=== PATIENT | male | born 1995 | race Caucasian/White ===

== ENCOUNTER 2021-10-16 18:38 | Inpatient (IN) ==
--- NOTE | 2021-10-16 19:04 | XRay Report ---
XR chest 1V portable HISTORY: 26 years-old Male SOB acute shortness of breath COMPARISON: Chest radiograph 10/13/2021 TECHNIQUE: Portable AP view of the chest FINDINGS: Cardiomediastinal and hilar silhouettes are unchanged. Progressively worsened bilateral ill-defined a irspace opacities within a mid to lower lung zone predominant distribution. Mild associated interstit ial coarsening. No pneumothorax or large pleural effusion. No acute fracture. IMPRESSION: Progressively worsened bilateral airspace opacities compatible with multifocal pneumonia. ACT 112: Negative or not required by law. The above report was generated using voice recognition software. It may contain grammatical, syntax o r spelling errors. Electronically signed by: Porfirio Branch M.D. 10/16/2021 7:02 PM
[2021-10-16 19:59] LABS: Basophils # (auto) 0.02 K/uL (0-0.2); Basophils % (auto) 0.2 %; Hematocrit (blood only) 43.1 % (42-52); Hemoglobin 15.5 g/dL (14.0-18.0); Immature Granulocytes # (auto) 0.03 K/uL (0.00-0.02); Immature Granulocytes % (auto) 0.3 %; Lymphocytes # (auto) 0.45 K/uL (1.2-3.4); Lymphocytes % (auto) 4.7 %; Mean Corpuscular Hemoglobin 31.6 pg (25-34); Mean Corpuscular Volume 87.8 fL (80-100); Mean Platelet Volume 9.1 fL (7.4-10.4); Monocytes % (auto) 7.3 %; Neutrophils # (auto) 8.38 K/uL (1.4-6.5); Neutrophils % (auto) 87.5 %; Platelet Count 243 K/uL (130-400); RDW Coefficient of Variation 11.9 % (11.5-14.5); Red Blood Count 4.91 M/uL (4.7-6.1); White Blood Count 9.58 K/uL (4.8-10.8)
[2021-10-16 20:14] LABS: Partial Thromboplastin Ratio 0.9; Partial Thromboplastin Time 24.7 Seconds (21.0-31.0); Prothrombin Time 10.2 Seconds (9.0-12.0)
[2021-10-16 20:19] LABS: Alanine Aminotransferase 55 (12-78); Albumin Level 3.4 gm/dl (3.4-5.0); Aspartate Aminotransferase 35 U/L (15-37); BUN Creatinine Ratio 18.8 (10-20); Blood Urea Nitrogen 20 mg/dl (7-18); Calcium 9.1 mg/dl (8.5-10.1); Carbon Dioxide 26 mmol/L (21-32); Chloride 101 mmol/L (98-107); Est GFR (African American) 112.7 ml/min; Est GFR (Non-African American) 97.3 ml/min; Glucose 136 mg/dl (70-99); Magnesium 2.5 mg/dl (1.8-2.4); Potassium 4.3 mmol/L (3.5-5.1); Sodium 134 mmol/L (136-145)
[2021-10-16 20:24] LABS: Albumin Globulin Ratio 0.8 (0.9-2); Alkaline Phosphatase 56 U/L (45-117); Bilirubin,Total 0.8 mg/dl (0.2-1); Globulin 4.1 gm/dl (2.5-4.0); Total Protein 7.5 gm/dl (6.4-8.2); Troponin I < 0.015 ng/ml (0-0.045)
--- NOTE | 2021-10-16 21:37 | Emergency Department Note ---
Impression & Plan Acute hypoxemic respiratory failure due to COVID-19, Pneumonia due to 2019 novel coronavirus, Hyponatremia, Cough ED Provider Note NAME: GRICEL DIXON AGE: 26 SEX: M : 1995 ARRIVES VIA: Ambulance INFORMANT: Patient, ED PROVIDER(S): Yung Atkins MD � Chief Complaint: Shortness of breath, cough HPI: Patient does present with the above complaints. The patient is unvaccinated for COVID-19 and is on day 11 of symptoms. The patient was recently seen here and subsequently discharged. The patient has been taking Tessalon Perle, albuterol and dexamethasone. The patient has had mild improvement in symptoms. The patient denies any recent fever. Patient has any prior history of DVT or PE. Patient is not a smoker. Patient denies any recent surgeries or procedures. Patient is concerned as his oxygen at home was 84% on room air just from laying down to sitting up. Patient denies any vomiting or di arrhea. No loss of taste or smell. Patient denies any known sick contacts. Patient believes his symptoms have gotten progressively worse or not getting better. The medications make him feel somewhat better but only for a brief time. ROS: See HPI for pertinent positives and negatives. A total of 10 systems were reviewed and otherwise negative. Past medical history: See below Surgical history: See below Social history: See below Physical Exam: GENERAL: Fatigued in appearance, sitting upright in a wheelchair with nasal cannula in place. Wearing a mask. EYE EXAM: Normal conjunctiva. PERRL, no anisocoria and EOM's grossly intact w/o pain. NECK: Supple, no nuchal rigidity, no adenopathy, non-tender. No signs of meningismus. LUNGS: Crackles present. Normal chest wall mechanics. HEART: NSR, no MRG. ABDOMEN: Abdomen soft, non-tender, normo-active bowel sounds, no masses, no rebound or guarding. BACK: No CVA TTP. SKIN: No rashes and no bruising. UPPER EXTREMITIES: Upper extremities are grossly normal. LOWER EXTREMITIES: Grossly normal, no edema. Negative Homans' sign bilaterally. NEURO EXAM: A&O x3, cranial nerves II-XII grossly intact, normal speech, moves all 4 extremities on command w/o issue. Differential diagnoses: Reactive airway disease, pneumonia, pneumothorax, COPD, CHF, infections, cardiac ischemia, pulmonary embolism, musculoskeletal, gastrointestinal, as well as other pathologies. Course: Patient was seen and evaluated the bedside. Full history physical exam was performed. EKG interpreted by me Normal sinus rhythm, rate of 61, normal intervals, normal axis, T wave inversion in lead III not in contiguous leads. No obvious ST elevations. Imaging Studies: See Below Cardiac monitoring: An order was placed for continuous cardiac monitoring. The monitor shows a rate of 68 with sinus rhythm. MDM: Patient did present due to concern for Covid illness. Blood work is obtained along with an EKG and chest x-ray. Chest ray does show worsening Covid p neumonia. . Patient also reported that he blood work shows normal white count H&H and platelet count. The patient's kidney function is unremarkable. The patient does have mildly elevated magnesium and low sodium. Troponin is nondetectable. I did have the patient undergo an ambulatory trial without oxygen as the patient was on 1 L as this made him feel more comfortable. The patient dropped to 90%. Patient was concerned about his at home hypoxia of 84%. I did speak the on-call hospitalist and the patient was admitted by Dr. Ray. Critical Care: I have personally spent 42 minutes of critical care time in direct management of this patient. This includes bedside care, interpretation of diagnostic studies, and testing, discussion with consultants, patient, and family members, and other require inpatient management activities. This 42 minutes is in excess of all separately billable procedures. Past Med/Surg History Medical History COVID-19 Surgical History Hx of knee surgery No pertinent past surgical history Social History Smoking Status: Never smoker Feels Safe at Home: Yes Allergies Allergies Allergy/AdvReac Type Severity Reaction Status Date / Time No Known Allergies Allergy Unverified 10/13/21 10:17 Home Meds Home Medications Medication Instructions Recorded Confirmed acetaminophen 500 mg tablet 500 mg PO Q6H PRN 10/13/21 10/13/21 azithromycin 500 mg tablet 500 mg PO QAM 10/13/21 10/13/21 ibuprofen 200 mg tablet 200 mg PO Q6H PRN 10/13/21 10/13/21 Previous Rx's Medication Instructions Recorded albuterol sulfate 90 mcg/actuation 3 inh INHALATION Q6H #18 g 10/13/21 aerosol inhaler benzonatate 200 mg capsule 200 mg PO TID PRN #30 cap 10/13/21 dexamethasone 6 mg tablet 6 mg PO DAILY #6 tab 10/13/21 (Decadron) Results & Data (ED) Vital Signs Vital Signs - 24 hr 10/16/21 18:42 10/16/21 19:46 10/16/21 21:57 Temperature 36.6 C Temperature Source Temporal Artery Scan Pulse Rate 79 Pulse Rate [Finger] 73 Respiratory Rate 16 20 Respiratory Effort / Characteristics Respiratory Depth Blood Pressure 129/81 Blood Pressure [Left Arm] 129/79 Blood Pressure Mean 97 Blood Pressure Mean [Left Arm] 95 Blood Pressure Position [Left Arm] Pulse Oximetry 92 95 Pulse Oximetry [Exercises] 90 Pulse Oximetry [Recovery] 91 Pulse Oximetry [Resting] 93 Oxygen Delivery Method Room Air Nasal Cannula Room Air Oxygen Flow Rate 1 Sepsis Recent Fever Within 48 Hours No Sepsis New/Unexplained Change in Mental Status No Sepsis Action Taken by Nursing No Action Required 10/16/21 22:17 10/16/21 22:19 10/16/21 22:21 Temperature Temperature Source Pulse Rate Pulse Rate [Finger] 64 Respiratory Rate 22 Respiratory Effort / Characteristics Non-Labored Spontaneous Non-Labored Spontaneous Non-Labored Spontaneous Respiratory Depth Normal Normal Blood Pressure Blood Pressure [Left Arm] 119/72 Blood Pressure Mean Blood Pressure Mean [Left Arm] 87 Blood Pressure Position [Left Arm] Sitting Pulse Oximetry 95 95 Pulse Oximetry [Exercises] Pulse Oximetry [Recovery] Pulse Oximetry [Resting] Oxygen Delivery Method Nasal Cannula Nasal Cannula Oxygen Flow Rate 1 1 Sepsis Recent Fever Within 48 Hours Sepsis New/Unexplained Change in Mental Status Sepsis Action Taken by Nursing Laboratory Data Result diagrams: 10/16/21 19:50 10/16/21 19:50 Lab Results 10/16/21 10/16/21 10/16/21 Range/Units 19:50 19:50 19:50 WBC 9.58 (4.8-10.8) K/uL RBC 4.91 (4.7-6.1) M/uL Hgb 15.5 (14.0-18.0) g/dL Hct 43.1 (42-52) % MCV 87.8 (80-100) fL MCH 31.6 (25-34) pg MCHC 36.0 (32-36) g/dL RDW Std Deviation 38.0 (36.4-46.3) fL RDW Coeff of [place] 11.9 (11.5-14.5) % Plt Count 243 (130-400) K/uL MPV 9.1 (7.4-10.4) fL Immature Gran % (Auto) 0.3 % Neut % (Auto) 87.5 % Lymph % (Auto) 4.7 % [place] % (Auto) 7.3 % Eos % (Auto) 0.0 % Baso % (Auto) 0.2 % Neut # (Auto) 8.38 H (1.4-6.5) K/uL Lymph # (Auto) 0.45 L (1.2-3.4) K/uL [place] # (Auto) 0.70 H (0.11-0.59) K/uL Eos # (Auto) 0.00 (0-0.5) K/uL Baso # (Auto) 0.02 (0-0.2) K/uL Immature Gran # (Auto) 0.03 H (0.00-0.02) K/uL PT 10.2 (9.0-12.0) Seconds INR 1.0 (0.9-1.1) APTT 24.7 (21.0-31.0) Seconds PTT Ratio 0.9 Sodium 134 L (136-145) mmol/L Potassium 4.3 (3.5-5.1) mmol/L Chloride 101 (98-107) mmol/L Carbon Dioxide 26 (21-32) mmol/L Anion Gap 7.0 (3-11) BUN 20 H (7-18) mg/dl Creatinine 1.04 (0.6-1.4) mg/dl Est Cr Clr Drug Dosing Not Reportable Est GFR ( Amer) 112.7 ml/min Est GFR (Non-Af Amer) 97.3 ml/min BUN/Creatinine Ratio 18.8 (10-20) Glucose 136 H (70-99) mg/dl Calcium 9.1 (8.5-10.1) mg/dl Magnesium 2.5 H (1.8-2.4) mg/dl Total Bilirubin 0.8 (0.2-1) mg/dl AST 35 (15-37) U/L ALT 55 (12-78) Alkaline Phosphatase 56 (45-117) U/L Troponin I < 0.015 (0-0.045) ng/ml Total Protein 7.5 (6.4-8.2) gm/dl Albumin 3.4 (3.4-5.0) gm/dl Globulin 4.1 H (2.5-4.0) gm/dl Albumin/Globulin Ratio 0.8 L (0.9-2) Administered Medications Discontinued Medications Sodium Chloride (Nss 1000ml) 1,000 mls @ 999 mls/hr IV .Q1H1M ONE Stop: 10/16/21 22:45 Last Infusion: 10/16/21 22:42 Dose: 0 mls/hr Documented by: [id number] Admin: 10/16/21 22:07 Dose: 999 mls/hr Documented by: [id number] Ketorolac Tromethamine (Ketorolac Tromethamine 15 Mg/Ml Vial) 10 mg IV NOW ONE Stop: 10/16/21 21:46 Last Admin: 10/16/21 22:07 Dose: 10 mg Documented by: [id number] Imaging Data Radiologist's Impression: Chest X-Ray 10/16/21 18:44 XR chest 1V portable HISTORY: 26 years-old Male SOB acute shortness of breath COMPARISON: Chest radiograph 10/13/2021 TECHNIQUE: Portable AP view of the chest FINDINGS: Cardiomediastinal and hilar silhouettes are unchanged. Progressively worsened bilateral ill-defined airspace opacities within a mid to lower lung zone predominant distribution. Mild associated interstitial coarsening. No pneumothor ax or large pleural effusion. No acute fracture. IMPRESSION: Progressively worsened bilateral airspace opacities compatible with multifocal pneumonia. ACT 112: Negative or not required by law. The above report was generated using voice recognition software. It may contain grammatical, syntax or spelling errors. Electronically signed by: Porfirio Branch M.D. 10/16/2021 7:02 PM Discharge Plan Visit Data Chief Complaint: Shortness of Breath/Dyspnea ED Provider: Yung Atkins Discharge Problem: Acute hypoxemic respiratory failure due to COVID-19, Pneumonia due to 2019 novel coronavirus, Hyponatremia, Cough Patient Disposition: Admitted As Inpatient Prescriptions Prescriptions: No Action acetaminophen [Tylenol Ex Str Rapid Release] 500 mg Tablet 500 mg PO Q6H PRN (Reason: Pain) RF: 0 ibuprofen 200 mg Tablet 200 mg PO Q6H PRN (Reason: Pain) RF: 0 azithromycin 500 mg tablet 500 mg PO QAM RF: 0 albuterol sulfate 90 mcg/actuation HFA aerosol inhaler 3 inh inhalation Q6H Qty: 18 RF: 2 dexamethasone [Decadron] 6 mg tablet 6 mg PO DAILY Qty: 6 RF: 0 benzonatate 200 mg capsule 200 mg PO TID PRN (Reason: cough) Qty: 30 RF: 1 Referrals Referrals: Juan Avila [Primary Care Provider] -
[2021-10-16] MEDS ORDERED: SODIUM CHLORIDE 0.9% 1000ML 1,000 ML IV ONE (21:45)
[2021-10-16] MEDS ORDERED: KETOROLAC TROMETHAMINE 15 MG/ML VIAL IV ONE (21:45)
[2021-10-17] MEDS ORDERED: REMDESIVIR 200 MG in SODIUM CHLORIDE 0.9% 210 ML IV STA (00:09)
--- NOTE | 2021-10-17 00:10 | History & Physical Report ---
Date of Service October 17, 2021 Assessment & Plan (1) Acute hypoxemic respiratory failure due to COVID-19: Plan: Acute respiratory failure with hypoxia due to COVID-19 with secondary bacterial pneumonias- Failure of outpatient treatment Pulse ox noted to be 90% on room air with short walk Dexamethasone 6 mg IV every morning Remdesivir IV per protocol Duonebs every 4 hours while awake and every 2 hours when necessary. Ceftriaxone 1 g IV daily Azithromycin 500 mg IV daily Tessalon Perles 100 milligrams p.o. 3 times daily Guaifenesin extended release 12 mg p.o. twice daily Nasal cannula oxygen, titrate to keep pulse ox 95% (2) Secondary bacterial pneumonia: Plan: See above (3) Failure of outpatient treatment: Plan: See above History of Present Illness Chief Complaint: The patient presents to the emergency department with initial symptoms of short ness of breath and fever that began 10 days ago, was diagnosed with COVID-19 infection on 10/10, was seen at the ED here on 10/13/2021, placed on dexamethasone orally, azithromycin orally and albuterol HFA every 6 hours, and has continued to worsen causing him to represented to the ED this evening. Primary Care Provider: Juan Avila The patient is a 26-year-old male with no significant past medical history, who presents with symptoms as noted above. Chest x-ray in the ED this evening shows a worsening multifocal pneumonia, in particular at the bases bilaterally. His symptoms of initial improvement with subsequent worsening, and failure of outpatient treatment, are suggestive of initial COVID-19 pneumonia with superimposed secondary bacterial pneumonia with hypoxia. Pulse ox on room air noted to be 90% with exercise, although he notes 84% on room air at home. Allergies Allergy/AdvReac Type Severity Reaction Status Date / Time No Known Allergies Allergy Verified 10/17/21 00:11 Home Medications Medication Instructions Recorded Confirmed Type acetaminophen 500 mg tablet 500 mg PO Q6H PRN 10/13/21 10/13/21 History albuterol sulfate 90 mcg/actuation 3 inh INHALATION Q6H #18 g 10/13/21 Rx aerosol inhaler benzonatate 200 mg capsule 200 mg PO TID PRN #30 cap 10/13/21 Rx dexamethasone 6 mg tablet 6 mg PO DAILY #6 tab 10/13/21 Rx (Decadron) ibuprofen 200 mg tablet 200 mg PO Q6H PRN 10/13/21 10/13/21 History Past Med/Surg History Medical History COVID-19 Surgical History Hx of knee surgery No pertinent past surgical history Social History Smoking Status: Never smoker Feels Safe at Home: Yes Review of Systems Review of Systems: The patient denies chest pain, palpitations, lower extremity swelling, sore throat, fevers, chills, sweats, nausea, vomiting, diarrhea , constipation, abdominal pain, pelvic pain, blood in urine or stool, dysuria, urinary frequency or urgency, lightheadedness, dizziness, headache, memory loss, loss of consciousness, rash, abnormal bruising or bleeding, imbalance, focal weakness, numbness or tingling in arms or legs, back or neck pain, or night sweats. The review of systems is otherwise negative other than for that already noted above, and at least 10 systems have been reviewed. Physical Exam Physical Exam: The patient is awake, alert and oriented �3, well developed and well nourished, normocephalic and atraumatic, lying in bed and in no acute distress at rest except during paroxysmal coughing. HEENT--PERRL, EOMI, mucous membranes and oropharynx dry. Neck--supple. No JVD. No bruits. Thyroid normal, trachea midline, no adenopathy. Heart--normal S1 and S2. No murmurs, rubs or gallops. Lungs--coarse breath sounds primarily at the bases bilaterally. No respiratory distress, no accessory muscle use, except during paroxysmal coughing Abdomen--normal bowel sounds and soft. Nontender. Nondistended, no hernias or masses, no organomegaly. Extremities--no cyanosis or clubbing. No edema. Dermatologic--normal skin turgor, normal color, no abnormal lymph nodes, no rash . Neurologic--cranial nerves II through XII grossly intact. Rheumatologic--normal range of motion. Psychiatric--normal affect. Results & Data Results & Data ([facility]) Vital Signs (Past 12 Hours) Vital Signs Temp Pulse Pulse Resp BP BP Pulse Ox 10/17/21 00:02 94 10/17/21 00:00 63 93 H 126/77 93 10/16/21 22:21 95 10/16/21 22:17 64 22 119/72 95 10/16/21 21:57 10/16/21 19:46 73 20 129/79 95 10/16/21 18:42 36.6 C 79 16 129/81 92 Pulse Ox Pulse Ox Pulse Ox 10/17/21 00:02 10/17/21 00:00 10/16/21 22:21 10/16/21 22:17 10/16/21 21:57 90 91 93 10/16/21 19:46 10/16/21 18:42 Laboratory Results Laboratory Results WBC 9.58 K/uL (4.8-10.8) 10/16/21 19:50 RBC 4.91 M/uL (4.7-6.1) 10/16/21 19:50 Hgb 15.5 g/dL (14.0-18.0) 10/16/21 19:50 Hct 43.1 % (42-52) 10/16/21 19:50 MCV 87.8 fL (80-100) 10/16/21 19:50 MCH 31.6 pg (25-34) 10/16/21 19:50 MCHC 36.0 g/dL (32-36) 10/16/21 19:50 RDW Std Deviation 38.0 fL (36.4-46.3) 10/16/21 19:50 RDW Coeff of [place] 11.9 % (11.5-14.5) 10/16/21 19:50 Plt Count 243 K/uL (130-400) 10/16/21 19:50 MPV 9.1 fL (7.4-10.4) 10/16/21 19:50 Immature Gran % (Auto) 0.3 % 10/16/21 19:50 Neut % (Auto) 87.5 % 10/16/21 19:50 Lymph % (Auto) 4.7 % 10/16/21 19:50 [place] % (Auto) 7.3 % 10/16/21 19:50 Eos % (Auto) 0.0 % 10/16/21 19:50 Baso % (Auto) 0.2 % 10/16/21 19:50 Neut # (Auto) 8.38 K/uL (1.4-6.5) H 10/16/21 19:50 Lymph # (Auto) 0.45 K/uL (1.2-3.4) L 10/16/21 19:50 [place] # (Auto) 0.70 K/uL (0.11-0.59) H 10/16/21 19:50 Eos # (Auto) 0.00 K/uL (0-0.5) 10/16/21 19:50 Baso # (Auto) 0.02 K/uL (0-0.2) 10/16/21 19:50 Immature Gran # (Auto) 0.03 K/uL (0.00-0.02) H 10/16/21 19:50 PT 10.2 Seconds (9.0-12.0) 10/16/21 19:50 INR 1.0 (0.9-1.1) 10/16/21 19:50 APTT 24.7 Seconds (21.0-31.0) 10/16/21 19:50 PTT Ratio 0.9 10/16/21 19:50 Sodium 134 mmol/L (136-145) L 10/16/21 19:50 Potassium 4.3 mmol/L (3.5-5.1) 10/16/21 19:50 Chloride 101 mmol/L (98-107) 10/16/21 19:50 Carbon Dioxide 26 mmol/L (21-32) 10/16/21 19:50 Anion Gap 7.0 (3-11) 10/16/21 19:50 BUN 20 mg/dl (7-18) H 10/16/21 19:50 Creatinine 1.04 mg/dl (0.6-1.4) 10/16/21 19:50 Est Cr Clr Drug Dosing Not Reportable 10/16/21 19:50 Est GFR ( Amer) 112.7 ml/min 10/16/21 19:50 Est GFR (Non-Af Amer) 97.3 ml/min 10/16/21 19:50 BUN/Creatinine Ratio 18.8 (10-20) 10/16/21 19:50 Glucose 136 mg/dl (70-99) H 10/16/21 19:50 Calcium 9.1 mg/dl (8.5-10.1) 10/16/21 19:50 Magnesium 2.5 mg/dl (1.8-2.4) H 10/16/21 19:50 Total Bilirubin 0.8 mg/dl (0.2-1) 10/16/21 19:50 AST 35 U/L (15-37) 10/16/21 19:50 ALT 55 (12-78) 10/16/21 19:50 Alkaline Phosphatase 56 U/L (45-117) 10/16/21 19:50 Troponin I < 0.015 ng/ml (0-0.045) 10/16/21 19:50 Total Protein 7.5 gm/dl (6.4-8.2) 10/16/21 19:50 Albumin 3.4 gm/dl (3.4-5.0) 10/16/21 19:50 Globulin 4.1 gm/dl (2.5-4.0) H 10/16/21 19:50 Albumin/Globulin Ratio 0.8 (0.9-2) L 10/16/21 19:50 Impressions Chest X-Ray 10/16/21 18:44 XR chest 1V portable HISTORY: 26 years-old Male SOB acute shortness of breath COMPARISON: Chest radiograph 10/13/2021 TECHNIQUE: Portable AP view of the chest FINDINGS: Cardiomediastinal and hilar silhouettes are unchanged. Progressively worsened bilateral ill-defined airspace opacities within a mid to lower lung zone predominant distribution. Mild associated interstitial coarsening. No pneumothorax or large pleural effusion. No acute fracture. IMPRESSION: Progressively worsened bilateral airspace opacities compatible with multifocal pneumonia. ACT 112: Negative or not required by law. The above report was generated using voice recognition software. It may contain grammatical, syntax or spelling errors. Electronically signed by: Porfirio Branch M.D. 10/16/2021 7:02 PM Code Status & VTE Plan Code Status Full code VTE Prophylaxis Plan VTE Prophylaxis will be ordered: Yes PG Care Time/CCT Total # of Minutes Spent Total Time Spent with Patient: Total time spent is greater than 50% in coordination of care (as documented) at patient's floor/unit and/or counseling patient: Coding Level of Care Code 10083 Initial Inpt Care Lvl 3 Diagnoses Acute hypoxemic respiratory failure due to COVID-19 U07.1; J96.01 Secondary bacterial pneumonia J15.9 Failure of outpatient treatment Z78.9
[2021-10-17] MEDS ORDERED: ACETAMINOPHEN 325 MG TAB PO PRN (02:53)
[2021-10-17] MEDS ORDERED: ONDANSETRON INJ 2 MG/ML 2 ML VIAL IV PRN (02:53)
[2021-10-17] MEDS ORDERED: cefTRIAXone SODIUM 1,000 MG in DEXTROSE 5% 50 ML IV SCH (02:53)
[2021-10-17] MEDS: SODIUM CHLORIDE 0.9% 10ML FLUSH IV SCH ×3 (03:00→20:18)
[2021-10-17] MEDS ORDERED: PATIENT'S HEIGHT AND/OR WEIGHT NEEDED SCH (03:15)
[2021-10-17] MEDS: cefTRIAXone SODIUM 2,000 MG in DEXTROSE 5% 50 ML IV SCH (04:57)
[2021-10-17] MEDS ORDERED: ALBUT/IPRATROP 3MG/0.5MG NEB 3 ML VIAL NEB SCH (07:00)
[2021-10-17] MEDS: BENZONATATE 100 MG CAPSULE PO SCH ×3 (08:46→20:18)
[2021-10-17] MEDS: guaiFENesin 600 MG TABCR PO SCH ×2 (08:46→20:18)
[2021-10-17] MEDS: AZITHROMYCIN 500 MG in DEXTROSE 5% 250 ML IV SCH (09:47)
[2021-10-17] MEDS: ENOXAPARIN INJ 40 MG/0.4 ML SYR SQ SCH (09:47)
[2021-10-17] MEDS: dexAMETHasone 6 MG in SYRINGE 0 ML IV SCH (09:47)
--- NOTE | 2021-10-17 10:26 | Electrocardiogram Report ---
Test Reason : Blood Pressure : / mmHG Vent. Rate : 061 BPM Atrial Rate : 061 BPM P-R Int : 120 ms QRS Dur : 096 ms QT Int : 414 ms P-R-T Axes : 036 050 019 degrees QTc Int : 416 ms Poor data quality, interpretation may be adversely affected Normal sinus rhythm Normal ECG No previous ECGs available Confirmed by Sergio Jolly ([id number]) on 10/17/2021 10:26:47 AM Referred By: REFERRED SELF Confirmed By:Sergio Jolly
[2021-10-17] MEDS ORDERED: ALBUT/IPRATROP 3MG/0.5MG NEB 3 ML VIAL NEB PRN (10:32)
--- NOTE | 2021-10-17 13:57 | History & Physical Bridge Note ---
Date of Service October 17, 2021 History & Physical Bridge Note I have examined the patient, reviewed the History & Physical and in the interval since the performance of the History & Physical I have noted the following changes of clinical significance: patient feels a little more short of breath, he is on 4L mask at the moment, just walked back from bathroom gets coughing spells that make him desaturate, will give Codeine q6 PRN discussed eating and drinking well he will lay prone to help saturations discussed he can be discharged once on room air
[2021-10-18] MEDS: cefTRIAXone SODIUM 2,000 MG in DEXTROSE 5% 50 ML IV SCH (04:48)
[2021-10-18] MEDS: AZITHROMYCIN 500 MG in DEXTROSE 5% 250 ML IV SCH (09:54)
[2021-10-18] MEDS: dexAMETHasone 6 MG in SYRINGE 0 ML IV SCH (09:55)
[2021-10-18] MEDS: ENOXAPARIN INJ 40 MG/0.4 ML SYR SQ SCH (09:55)
[2021-10-18] MEDS: guaiFENesin 600 MG TABCR PO SCH ×2 (09:56→21:15)
[2021-10-18] MEDS: BENZONATATE 100 MG CAPSULE PO SCH ×3 (09:56→21:16)
--- NOTE | 2021-10-18 13:59 | Hospitalist Progress Note ---
Date of Service October 18, 2021 Assessment & Plan (1) Acute hypoxemic respiratory failure due to COVID-19: Plan: Acute respiratory failure with hypoxia due to COVID-19 with secondary bacterial pneumonias stable on 4L today, laying prone as much as possible he desaturates and gets short of breath on exertion flutter valve QID, incentive spirometer dexamethasone 6mg IV daily, day 2 Remdesivir, day 2 continue Ceftriaxone/Zithromax for 5 days, day 2 Duoneb PRN (2) Pneumonia due to 2019 novel coronavirus: Plan: treatment with dexamethasone and Remdesivir no role for baricitinib, only on 4L (3) Secondary bacterial pneumonia: Plan: complete 5 days of Rocephin/Zithromax (4) Failure of outpatient treatment: Plan: See above (5) Cough: Admission and Anticipated Discharge Date Admission Date: October 17, 2021 Subjective patient feels about the same as yesterday, still with a harsh cough feels fine when he is laying prone, gets short of breath when walking to the bathroom or when sitting up to eat no fever + cough, has a difficult time bringing up any sputum, got him a flutter valve encouraged him to keep doing what he is doing Review of Systems Review of Systems: All systems reviewed & are unremarkable except as noted in Subjective Respiratory: + cough, + dyspnea and + dyspnea on exertion Physical Exam Physical Exam: General: well developed, well nourished, no acute distress, comfortable Neck: supple, trachea midline, normal thyroid Lungs: clear to auscultation bilaterally, + tachypnea, slight accessory muscle use, + cough Heart: regular S1 and S2, no murmur, peripheral pulses normal, capillary refill normal, no edema Abdomen: soft, NT, ND, + BS, no hepatomegaly, normal to percussion Extremities: normal in appearance, no cyanosis, no petechiae, strength is 5/5 bilaterally Neuro: awake, cooperative, moves all extremities, no focal motor deficits, CN II-XII intact, sensation in extremities intact, normal speech Skin: warm, dry, no rash, normal turgor Psych: Awake, alert oriented x 3, euthymic affect Results & Data Results & Data ([facility]) Vital Signs (Past 12 Hours) Vital Signs Temp Pulse Pulse Resp BP Pulse Ox 10/18/21 05:39 54 L 97 10/18/21 04:49 37.2 C 65 115/91 94 10/18/21 04:00 44 L 23 98 Medications Administered Current Inpatient Medications Acetaminophen (Acetaminophen 325 Mg Tab) 650 mg PO Q4H PRN PRN Reason: Pain or Fever Stop: 11/16/21 02:52 Last Admin: 10/17/21 15:14 Dose: 650 mg Documented by: Albuterol (Albut/Ipratrop 3mg/0.5mg Neb 3 Ml Vial) 3 ml NEB Q4R PRN PRN Reason: Shortness Of Breath Or Wheezing Stop: 11/16/21 10:31 Benzonatate (Benzonatate 100 Mg Capsule) 100 mg PO TID [facility] Stop: 11/16/21 08:59 Last Admin: 10/18/21 09:56 Dose: 100 mg Documented by: Enoxaparin Sodium (Enoxaparin Inj 40 Mg/0.4 Ml Syr) 40 mg SQ Q24H [facility] Stop: 11/16/21 08:59 Last Admin: 10/18/21 09:55 Dose: 40 mg Documented by: Guaifenesin (Guaifenesin 600 Mg Tabcr) 1,200 mg PO Q12 [facility] Stop: 11/16/21 08:59 Last Admin: 10/18/21 09:56 Dose: 1,200 mg Documented by: Guaifenesin/Codeine Phosphate (Guaifenesin/Codeine 200mg/20mg 10ml Udc) 10 ml PO Q6H PRN PRN Reason: Cough Stop: 11/16/21 13:54 Last Admin: 10/17/21 15:14 Dose: 10 ml Documented by: Dexamethasone 6 mg/ Syringe 1.5 mls @ 1 mls/min IV Q24H [facility] Stop: 11/16/21 08:59 Last Admin: 10/18/21 09:55 Dose: 1 mls/min Documented by: Azithromycin 500 mg/ Dextrose 255 mls @ 125 mls/hr IV Q24H [facility] Stop: 10/24/21 08:59 Last Infusion: 10/18/21 12:11 Dose: Infused Documented by: Remdesivir 100 mg/ Sodium (Chloride) 250 mls @ 250 mls/hr IV Q24H [facility]; Protocol Stop: 10/21/21 20:59 Ceftriaxone Sodium 2,000 mg/ (Dextrose) 70 mls @ 140 mls/hr IV Q24H [facility] Stop: 10/24/21 03:59 Last Infusion: 10/18/21 05:19 Dose: Infused Documented by: Ondansetron HCl (Ondansetron Inj 2 Mg/Ml 2 Ml Vial) 4 mg IV Q6H PRN PRN Reason: Nausea Stop: 11/16/21 02:52 Sodium Chloride (Sodium Chloride 0.9% 10ml Flush) 30 ml IV Q24H [facility] Stop: 10/20/21 21:01 Last Admin: 10/17/21 20:18 Dose: 30 ml Documented by: PG Care Time/CCT Total # of Minutes Spent Total Time Spent with Patient: Total time spent is greater than 50% in coordination of care (as documented) at patient's floor/unit and/or counseling patient: Coding Level of Care Code 78081 Subseq Hosp Care Lvl 2 Diagnoses Acute hypoxemic respiratory failure due to COVID-19 U07.1; J96.01 Secondary bacterial pneumonia J15.9 Failure of outpatient treatment Z78.9 Pneumonia due to 2019 novel coronavirus U07.1; J12.82 Cough R05.9
[2021-10-18] MEDS: REMDESIVIR 100 MG in SODIUM CHLORIDE 0.9% 230 ML IV SCH (19:53)
[2021-10-18] MEDS: SODIUM CHLORIDE 0.9% 10ML FLUSH IV SCH (21:16)
[2021-10-19] MEDS: cefTRIAXone SODIUM 2,000 MG in DEXTROSE 5% 50 ML IV SCH (04:16)
[2021-10-19] MEDS: BENZONATATE 100 MG CAPSULE PO SCH ×3 (08:52→21:31)
[2021-10-19] MEDS: dexAMETHasone 6 MG in SYRINGE 0 ML IV SCH (08:52)
[2021-10-19] MEDS: ENOXAPARIN INJ 40 MG/0.4 ML SYR SQ SCH (08:53)
[2021-10-19] MEDS: guaiFENesin 600 MG TABCR PO SCH ×2 (08:53→21:31)
[2021-10-19] MEDS: AZITHROMYCIN 500 MG in DEXTROSE 5% 250 ML IV SCH (08:55)
--- NOTE | 2021-10-19 13:43 | Hospitalist Progress Note ---
Date of Service October 19, 2021 Assessment & Plan (1) Acute hypoxemic respiratory failure due to COVID-19: Plan: Acute respiratory failure with hypoxia due to COVID-19 with secondary bacterial pneumonias stable on 5L today, laying prone as much as possible he desaturates and gets short of breath on exertion flutter valve QID, incentive spirometer dexamethasone 6mg IV daily, day 3 Remdesivir, day 3 continue Ceftriaxone/Zithromax for 5 days, day 3 Duoneb PRN (2) Pneumonia due to 2019 novel coronavirus: Plan: treatment with dexamethasone and Remdesivir no role for baricitinib, only on 5L (3) Secondary bacterial pneumonia: Plan: complete 5 days of Rocephin/Zithromax, day 3 today (4) Cough: Plan: Codeine PRN as he desaturates when he coughs Plan: continue treatment and try to wean down off oxygen Admission and Anticipated Discharge Date Admission Date: October 17, 2021 Subjective patient doing well, coughing less, he can pull 2000mL with the incentive spirometer he is laying prone often eating okay, appetite not the greatest, drinking a lot of water no fever or chills, no nausea, no diarrhea still very short of breath on exertion Review of Systems Review of Systems: All systems reviewed & are unremarkable except as noted in Subjective Constitutional: no fever Respiratory: + cough, + dyspnea and + dyspnea on exertion Physical Exam Physical Exam: General: well developed, well nourished, no acute distress, comfortable Neck: supple, trachea midline, normal thyroid Lungs: clear to auscultation bilaterally, + tachypnea, slight accessory muscle use, + cough Heart: regular S1 and S2, no murmur, peripheral pulses normal, capillary refill normal, no edema Abdomen: soft, NT, ND, + BS, no hepatomegaly, normal to percussion Extremities: normal in appearance, no cyanosis, no petechiae, strength is 5/5 bilaterally Neuro: awake, cooperative, moves all extremities, no focal motor deficits, CN II-XII intact, sensation in extremities intact, normal speech Skin: warm, dry, no rash, normal turgor Psych: Awake, alert oriented x 3, euthymic affect Results & Data Results & Data ([facility]) Vital Signs (Past 12 Hours) Vital Signs Temp Pulse Pulse Resp BP Pulse Ox 10/19/21 09:33 47 L 10/19/21 08:16 36.5 C 78 20 99/64 L 10/19/21 04:08 36.8 C 66 18 95/66 L 94 Medications Administered Current Inpatient Medications Acetaminophen (Acetaminophen 325 Mg Tab) 650 mg PO Q4H PRN PRN Reason: Pain or Fever Stop: 11/16/21 02:52 Last Admin: 10/17/21 15:14 Dose: 650 mg Documented by: Albuterol (Albut/Ipratrop 3mg/0.5mg Neb 3 Ml Vial) 3 ml NEB Q4R PRN PRN Reason: Shortness Of Breath Or Wheezing Stop: 11/16/21 10:31 Benzonatate (Benzonatate 100 Mg Capsule) 100 mg PO TID [facility] Stop: 11/16/21 08:59 Last Admin: 10/19/21 08:52 Dose: 100 mg Documented by: Enoxaparin Sodium (Enoxaparin Inj 40 Mg/0.4 Ml Syr) 40 mg SQ Q24H [facility] Stop: 11/16/21 08:59 Last Admin: 10/19/21 08:53 Dose: 40 mg Documented by: Guaifenesin (Guaifenesin 600 Mg Tabcr) 1,200 mg PO Q12 [facility] Stop: 11/16/21 08:59 Last Admin: 10/19/21 08:53 Dose: 1,200 mg Documented by: Guaifenesin/Codeine Phosphate (Guaifenesin/Codeine 200mg/20mg 10ml Udc) 10 ml PO Q6H PRN PRN Reason: Cough Stop: 11/16/21 13:54 Last Admin: 10/17/21 15:14 Dose: 10 ml Documented by: Dexamethasone 6 mg/ Syringe 1.5 mls @ 1 mls/min IV Q24H [facility] Stop: 11/16/21 08:59 Last Admin: 10/19/21 08:52 Dose: 1 mls/min Documented by: Azithromycin 500 mg/ Dextrose 255 mls @ 125 mls/hr IV Q24H [facility] Stop: 10/24/21 08:59 Last Infusion: 10/19/21 11:02 Dose: Infused Documented by: Remdesivir 100 mg/ Sodium (Chloride) 250 mls @ 250 mls/hr IV Q24H [facility]; Protocol Stop: 10/21/21 20:59 Last Infusion: 10/18/21 21:02 Dose: Infused Documented by: Ceftriaxone Sodium 2,000 mg/ (Dextrose) 70 mls @ 140 mls/hr IV Q24H [facility] Stop: 10/24/21 03:59 Last Infusion: 10/19/21 04:50 Dose: Infused Documented by: Ondansetron HCl (Ondansetron Inj 2 Mg/Ml 2 Ml Vial) 4 mg IV Q6H PRN PRN Reason: Nausea Stop: 11/16/21 02:52 Sodium Chloride (Sodium Chloride 0.9% 10ml Flush) 30 ml IV Q24H [facility] Stop: 10/20/21 21:01 Last Admin: 10/18/21 21:16 Dose: 30 ml Documented by: PG Care Time/CCT Total # of Minutes Spent Total Time Spent with Patient: Total time spent is greater than 50% in coordination of care (as documented) at patient's floor/unit and/or counseling patient: Coding Level of Care Code 19032 Subseq Hosp Care Lvl 2 Diagnoses Acute hypoxemic respiratory failure due to COVID-19 U07.1; J96.01 Pneumonia due to 2019 novel coronavirus U07.1; J12.82 Secondary bacterial pneumonia J15.9 Cough R05.9
[2021-10-19] MEDS: REMDESIVIR 100 MG in SODIUM CHLORIDE 0.9% 230 ML IV SCH (21:36)
[2021-10-19] MEDS: SODIUM CHLORIDE 0.9% 10ML FLUSH IV SCH (22:58)
[2021-10-20] MEDS: cefTRIAXone SODIUM 2,000 MG in DEXTROSE 5% 50 ML IV SCH (03:49)
[2021-10-20] MEDS: dexAMETHasone 6 MG in SYRINGE 0 ML IV SCH (08:42)
[2021-10-20] MEDS: guaiFENesin 600 MG TABCR PO SCH ×2 (08:42→20:09)
[2021-10-20] MEDS: AZITHROMYCIN 500 MG in DEXTROSE 5% 250 ML IV SCH (08:42)
[2021-10-20] MEDS: ENOXAPARIN INJ 40 MG/0.4 ML SYR SQ SCH (08:42)
[2021-10-20] MEDS: BENZONATATE 100 MG CAPSULE PO SCH ×3 (08:50→20:09)
[2021-10-20] MEDS: REMDESIVIR 100 MG in SODIUM CHLORIDE 0.9% 230 ML IV SCH (20:09)
[2021-10-20] MEDS: SODIUM CHLORIDE 0.9% 10ML FLUSH IV SCH (20:16)
--- NOTE | 2021-10-21 01:30 | Hospitalist Progress Note ---
Date of Service October 20, 2021 Assessment & Plan (1) Acute hypoxemic respiratory failure due to COVID-19: Plan: Acute respiratory failure with hypoxia due to COVID-19 with secondary bacterial pneumonias stable on 5L today, laying prone as much as possible he desaturates and gets short of breath on exertion flutter valve QID, incentive spirometer dexamethasone 6mg IV daily, day 4 Remdesivir, day 4 continue Ceftriaxone/Zithromax for 5 days, day 4 Duoneb PRN (2) Pneumonia due to 2019 novel coronavirus: Plan: treatment with dexamethasone and Remdesivir no role for baricitinib, only on 5L (3) Secondary bacterial pneumonia: Plan: complete 5 days of Rocephin/Zithromax, day 4 today (4) Cough: Plan: Codeine PRN as he desaturates when he coughs Plan: continue treatment and try to wean down off oxygen Admission and Anticipated Discharge Date Admission Date: October 17, 2021 Subjective patient doing well on 5L NC, off the mask, he says that was too claustrophobic eating a little better he can pull 2500mL on incentive spirometer coughing less, no fever, no chest pain, no nausea Review of Systems Review of Systems: All systems reviewed & are unremarkable except as noted in Subjective Respiratory: + cough, + dyspnea and + dyspnea on exertion Physical Exam Physical Exam: General: well developed, well nourished, no acute distress, comfortable Neck: supple, trachea midline, normal thyroid Lungs: clear to auscultation bilaterally, + tachypnea, slight accessory muscle use, + cough Heart: regular S1 and S2, no murmur, peripheral pulses normal, capillary refill normal, no edema Abdomen: soft, NT, ND, + BS, no hepatomegaly, normal to percussion Extremities: normal in appearance, no cyanosis, no petechiae, strength is 5/5 bilaterally Neuro: awake, cooperative, moves all extremities, no focal motor deficits, CN II-XII intact, sensation in extremities intact, normal speech Skin: warm, dry, no rash, normal turgor Psych: Awake, alert oriented x 3, euthymic affect Results & Data Results & Data ([facility]) Vital Signs (Past 12 Hours) Vital Signs Temp Pulse Pulse Resp BP BP Pulse Ox 10/20/21 22:00 36.9 C 60 20 105/64 98 10/20/21 19:00 37 C 68 20 99/66 L 95 10/20/21 15:58 61 10/20/21 14:52 36.9 C 62 18 120/75 96 Medications Administered Current Inpatient Medications Acetaminophen (Acetaminophen 325 Mg Tab) 650 mg PO Q4H PRN PRN Reason: Pain or Fever Stop: 11/16/21 02:52 Last Admin: 10/17/21 15:14 Dose: 650 mg Documented by: Albuterol (Albut/Ipratrop 3mg/0.5mg Neb 3 Ml Vial) 3 ml NEB Q4R PRN PRN Reason: Shortness Of Breath Or Wheezing Stop: 11/16/21 10:31 Benzonatate (Benzonatate 100 Mg Capsule) 100 mg PO TID [facility] Stop: 11/16/21 08:59 Last Admin: 10/20/21 20:09 Dose: 100 mg Documented by: Enoxaparin Sodium (Enoxaparin Inj 40 Mg/0.4 Ml Syr) 40 mg SQ Q24H [facility] Stop: 11/16/21 08:59 Last Admin: 10/20/21 08:42 Dose: 40 mg Documented by: Guaifenesin (Guaifenesin 600 Mg Tabcr) 1,200 mg PO Q12 [facility] Stop: 11/16/21 08:59 Last Admin: 10/20/21 20:09 Dose: 1,200 mg Documented by: Guaifenesin/Codeine Phosphate (Guaifenesin/Codeine 200mg/20mg 10ml Udc) 10 ml PO Q6H PRN PRN Reason: Cough Stop: 11/16/21 13:54 Last Admin: 10/17/21 15:14 Dose: 10 ml Documented by: Dexamethasone 6 mg/ Syringe 1.5 mls @ 1 mls/min IV Q24H [facility] Stop: 11/16/21 08:59 Last Admin: 10/20/21 08:42 Dose: 1 mls/min Documented by: Azithromycin 500 mg/ Dextrose 255 mls @ 125 mls/hr IV Q24H [facility] Stop: 10/24/21 08:59 Last Infusion: 10/20/21 10:45 Dose: Infused Documented by: Remdesivir 100 mg/ Sodium (Chloride) 250 mls @ 250 mls/hr IV Q24H [facility]; Protocol Stop: 12/11/21 20:59 Last Infusion: 10/20/21 21:30 Dose: Infused Documented by: Ceftriaxone Sodium 2,000 mg/ (Dextrose) 70 mls @ 140 mls/hr IV Q24H [facility] Stop: 10/24/21 03:59 Last Infusion: 10/20/21 05:26 Dose: Infused Documented by: Ondansetron HCl (Ondansetron Inj 2 Mg/Ml 2 Ml Vial) 4 mg IV Q6H PRN PRN Reason: Nausea Stop: 11/16/21 02:52 PG Care Time/CCT Total # of Minutes Spent Total Time Spent with Patient: Total time spent is greater than 50% in coordination of care (as documented) at patient's floor/unit and/or counseling patient: Coding Level of Care Code 97185 Subseq Hosp Care Lvl 2 Diagnoses Acute hypoxemic respiratory failure due to COVID-19 U07.1; J96.01 Pneumonia due to 2019 novel coronavirus U07.1; J12.82 Secondary bacterial pneumonia J15.9 Cough R05.9
[2021-10-21] MEDS: cefTRIAXone SODIUM 2,000 MG in DEXTROSE 5% 50 ML IV SCH (03:16)
[2021-10-21] MEDS: dexAMETHasone 6 MG in SYRINGE 0 ML IV SCH (09:03)
[2021-10-21] MEDS: ENOXAPARIN INJ 40 MG/0.4 ML SYR SQ SCH (09:03)
[2021-10-21] MEDS: AZITHROMYCIN 500 MG in DEXTROSE 5% 250 ML IV SCH (09:03)
[2021-10-21] MEDS: guaiFENesin 600 MG TABCR PO SCH ×2 (09:03→20:56)
[2021-10-21] MEDS: BENZONATATE 100 MG CAPSULE PO SCH ×3 (09:09→20:56)
--- NOTE | 2021-10-21 13:57 | Hospitalist Progress Note ---
Date of Service October 21, 2021 Assessment & Plan (1) Acute hypoxemic respiratory failure due to COVID-19: Plan: Acute respiratory failure with hypoxia due to COVID-19 with ? secondary bacterial pneumonias stable on 5L today (100% on 5L), laying prone as much as possible he desaturates and gets short of breath on exertion- but less so than prior flutter valve QID, incentive spirometer dexamethasone 6mg IV daily, day #5 Remdesivir, day #5 continue Ceftriaxone/Zithromax for 5 days, day #5 (will complete after today's doses) Duoneb PRN At this time, staff encouraged to down titrate his supplemental oxygen to maintain a pulse ox of 90% Suspect will likely be ready for discharge tomorrow (2) Pneumonia due to 2019 novel coronavirus: Plan: treatment with dexamethasone and Remdesivir no role for baricitinib, only on 5L (3) Secondary bacterial pneumonia: Plan: complete 5 days of Rocephin/Zithromax, day 5 today (4) Cough: Plan: Codeine PRN as he desaturates when he coughs Plan: continue treatment and try to wean down off oxygen Admission and Anticipated Discharge Date Admission Date: October 17, 2021 Supervising Physician Co-Signing Physician Notes Attending Attestation - Chart reviewed, care plan d/w ELBERT Robertson. I agree w/ the hicks components of her documentation. COVID-19 pneumonia - cont steroids, finish Remdesivir course, finish IV antibiotic therapy. Flynn Dean MD Subjective Patient seen on daily rounds today. Vocalizes no significant complaints or concerns. Reports that "this is the best he has felt thus far" Gets easily fatigued when toileting but no significant shortness of breath/dyspnea on exertion Realizes that he is becoming extremely fixated on his oxygen numbers is tolerating proning Denies fevers, chills, chest pain, shortness of breath, abdominal pain, nausea or vomiting. Nursing voices no complaints or concerns Review of Systems Review of Systems: All systems reviewed and are unremarkable except as noted in HPI and below Denies fevers, chills, headache, nasal congestion, sore throat, cough, chest pain, shortness of breath, palpitations, orthopnea, PND, abdominal pain, nausea, vomiting, diarrhea, constipation, dysuria, hematuria, frequency, back pain, joint pain or swelling, easy bruising or bleeding, skin lesions or rashes. Physical Exam Physical Exam: General: Resting comfortably in his hospital bed. In the prone position. NAD. HEENT: Head is AT/NC buccal mucosa is moist and pink Neck: No JVD. Negative hepatojugular reflex Cardiac: RRR without M/G/R Lungs: Speaking full sentences on supplemental oxygen. No conversational dyspnea or accessory muscle use. CTA without W/R/R Abdomen: Normoactive X4. Soft and nontender in all quadrants. Extremities: No peripheral clubbing cyanosis or edema Neuro: A&O X4 cranial nerves II through XII are grossly intact no focal neuro deficits Skin: No obvious skin lesions or rashes Psych: Appropriate affect pleasant and cooperative Results & Data Results & Data ([facility]) Vital Signs (Past 12 Hours) Vital Signs Temp Pulse Pulse Resp BP Pulse Ox 10/21/21 13:52 99 10/21/21 11:28 37.1 C 75 16 107/71 95 10/21/21 10:54 100 10/21/21 10:22 98 10/21/21 09:33 44 L 10/21/21 08:14 36.7 C 48 L 19 116/69 98 10/21/21 06:27 100 10/21/21 05:30 47 L Laboratory Results No lab data today PG Care Time/CCT Total # of Minutes Spent Total Time Spent with Patient: Total time spent is greater than 50% in coordination of care (as documented) at patient's floor/unit and/or counseling patient: Coding Level of Care Code 38666 Subseq Hosp Care Lvl 2 Diagnoses Acute hypoxemic respiratory failure due to COVID-19 U07.1; J96.01 Pneumonia due to 2019 novel coronavirus U07.1; J12.82 Secondary bacterial pneumonia J15.9 Cough R05.9
[2021-10-21] MEDS: REMDESIVIR 100 MG in SODIUM CHLORIDE 0.9% 230 ML IV SCH (19:33)
[2021-10-22] MEDS: cefTRIAXone SODIUM 2,000 MG in DEXTROSE 5% 50 ML IV SCH (04:05)
[2021-10-22 06:52] LABS: Basophils # (auto) 0.01 K/uL (0-0.2); Basophils % (auto) 0.1 %; Eosinophils # (auto) 0.08 K/uL (0-0.5); Eosinophils % (auto) 0.8 %; Hematocrit (blood only) 41.8 % (42-52); Hemoglobin 15.2 g/dL (14.0-18.0); Immature Granulocytes # (auto) 0.13 K/uL (0.00-0.02); Immature Granulocytes % (auto) 1.4 %; Lymphocytes # (auto) 1.16 K/uL (1.2-3.4); Lymphocytes % (auto) 12.2 %; Mean Corpuscular Hemoglobin 31.3 pg (25-34); Mean Corpuscular Hgb Conc 36.4 g/dL (32-36); Mean Platelet Volume 9.3 fL (7.4-10.4); Monocytes # (auto) 0.89 K/uL (0.11-0.59); Monocytes % (auto) 9.3 %; Neutrophils # (auto) 7.27 K/uL (1.4-6.5); Neutrophils % (auto) 76.2 %; Platelet Count 277 K/uL (130-400); RDW Coefficient of Variation 11.7 % (11.5-14.5); RDW Standard Deviation 36.4 fL (36.4-46.3); Red Blood Count 4.86 M/uL (4.7-6.1); White Blood Count 9.54 K/uL (4.8-10.8)
[2021-10-22 07:21] LABS: BUN Creatinine Ratio 21.9 (10-20); Calcium 8.5 mg/dl (8.5-10.1); Creatinine Clr Calc Pharmacy 138.3 ml/min; Est GFR (African American) 136.1 ml/min; Est GFR (Non-African American) 117.5 ml/min; Potassium 4.7 mmol/L (3.5-5.1)
[2021-10-22] MEDS: BENZONATATE 100 MG CAPSULE PO SCH ×2 (08:52→13:33)
[2021-10-22] MEDS: dexAMETHasone 6 MG in SYRINGE 0 ML IV SCH (08:52)
[2021-10-22] MEDS: AZITHROMYCIN 500 MG in DEXTROSE 5% 250 ML IV SCH (08:52)
[2021-10-22] MEDS: guaiFENesin 600 MG TABCR PO SCH (08:53)
[2021-10-22] MEDS: ENOXAPARIN INJ 40 MG/0.4 ML SYR SQ SCH (08:53)
[2021-10-22] MEDS ORDERED: OPTIRAY 320 125ml IV ONE (11:37)
--- NOTE | 2021-10-22 12:05 | CT Scan Report ---
CT angio chest PE protocol CLINICAL HISTORY: r/o PE Covid pneumonia TECHNIQUE: Multidetector row helical CT of the chest was performed. Coronal and sagittal reformations were obtained. Automated dose lowering techniques and/or adjustment according to patient size were u tilized for this exam. Comparison: Comparison is made to chest one view 10/16/2021 FINDINGS: Lungs and pleura: Diffuse groundglass and consolidative opacities are seen. Heart and pericardium: Heart size is normal. No pericardial effusion. Vessels: No evidence of pulmonary embolism. Mediastinum and taty: Unremarkable. Chest wall and lower neck: Unremarkable. Abdomen: Unremarkable. Bones: Unremarkable. IMPRESSION: 1. No evidence of pulmonary embolism. 2. Likely focal groundglass and consolidative opacities compatible with history of Covid pneumonia. ACT 112: Negative or not required by law. Electronically signed by: Louie Andrade M.D. 10/22/2021 12:04 PM
--- NOTE | 2021-10-22 14:24 | Discharge Summary ---
Date of Service October 22, 2021 Admission HPI Per Admitting Provider The patient is a 26-year-old male with no significant past medical history, who presents with symptoms as noted above. Chest x-ray in the ED this evening shows a worsening multifocal pneumonia, in particular at the bases bilaterally. His symptoms of initial improvement with subsequent worsening, and failure of outpatient treatment, are suggestive of initial COVID-19 pneumonia with superimposed secondary bacterial pneumonia with hypoxia. Pulse ox on room air noted to be 90% with exercise, although he notes 84% on room air at home. Principal Diagnosis 1. Covid with associated pneumonia 2. Hypoxemia 3 questionable secondary bacterial infection�completed antibiotics Discharge Exam General: Resting comfortably sitting upright in his hospital bed HEENT: Head is AT/NC buccal mucosa is moist and pink Neck: No JVD.� Negative hepatojugular reflex Cardiac: RRR without M/G/R Lungs: Speaking full sentences on supplemental oxygen.� No conversational dyspnea or accessory muscle use.� CTA without W/R/R Abdomen: Normoactive X4.� Soft and nontender in all quadrants. Extremities: No peripheral clubbing cyanosis or edema Neuro: A&O X4 cranial nerves II through XII are grossly intact no focal neuro deficits Skin: No obvious skin lesions or rashes Psych: Appropriate affect pleasant and cooperative Discharge Data Allergies Allergy/AdvReac Type Severity Reaction Status Date / Time No Known Allergies Allergy Verified 10/17/21 00:11 Consultations 10/16/21 23:31 ED Decision to Admit Stat Ordered Studies 10/22/21 10:47 CT angio chest PE protocol Stat IMPRESSION: 1.� No evidence of pulmonary embolism. 2.� Likely focal groundglass and consolidative opacities compatible with history of Covid pneumonia. Hospital Course (1) Acute hypoxemic respiratory failure due to COVID-19: Acute respiratory failure with hypoxia due to COVID-19 with ? secondary bacterial pneumonia remained stable on 5L --> has since been down tapered to RA (92% on RA on day of D/C) flutter valve QID, incentive spirometer while in house dexamethasone 6mg IV daily, day #6. Transitioned to PO for 4 additional doses (total of 10) Remdesivir- completed 5 days completed Ceftriaxone/Zithromax (x5days) for ? associated bacterial pneumonia Duoneb PRN on 10/22- doing well and stable on RA. completed full course of Remdesivir I do feel that he is medically and HD stable for D/C to home No need for supplemental O2 at rest. 2 step pulse ox done. Did well on RA for 3 min. At 4min, his pulse ox started to drop to 86% which caused "tunneled vision and severe anxiety" which only worsening his O2 sat (down to 83%) placed on supplemental O2 (3L and pulse ox improved to 90's) --Because of aforementioned, CTA done showing no evidence of PE. Does confirm the groundglass opacities --Patient admits that he has been fixated on his Oxygen numbers and this causes increased anxiety. I believe that he had an associated panic attack worsening his Pulse Ox. Reassurance given (2) Pneumonia due to 2019 novel coronavirus: treatment with dexamethasone and Remdesivir no role for baricitinib (3) Secondary bacterial pneumonia: complete 5 days of Rocephin/Zithromax (4) Cough: tessalon PRN as he desaturates when he coughs Total Time Total Time Spent Total Time Spent (In Minutes): 60 including time spent with patient, D/W RT and calling patient from outside the covid unit to further discuss episode that occurred during his 2-step. In addition, time spent D/W attending provider and preparation of documentation Discharge Plan Discharge Items Patient Disposition: Home - Self-Care Reason For Visit: SHORTNESS OF BREATH, COVID + 10/06 Discharge Diagnosis: 1. Covid PNA with Hypoxemia Activity: As commented below Activity Comment: as tolerated-with supplemental O2 Non-emergency contact: Primary Care Provider Call non-emergency contact if: you have any medication questions Follow-up/Referrals: Juan Avila [Primary Care Provider] - Diet: Regular Addtl Attending Provider Instructions: �You were hospitalized with Covid and associated pneumonia �Overall you have shown significant improvement �You are not requiring any supplemental oxygen at rest but do require 3 L with ambulation/walking �Would get up to the chair to eat your meals and remain as active as you can tolerate but remember not to overdo it �Remember that you will have some good days and some bad days and be easily fatigued �Keep an eye on your pulse oximeter and the magic number is >/=88% �Would advise staying home from work/working from home until after Sabrina (may need longer pending continued need for oxygen) �You are being continued on Decadron once daily. This is an anti-inflammatory to help with the inflammatory immune response seen that can worsen symptoms �You have been prescribed a ProAir inhaler to use as needed for cough, wheeze, shortness of breath. Use this as needed �In addition, I have prescribed Tessalon Perles to be used as needed for cough �You did complete a full course of antibiotic therapy to help with the potential for underlying bacterial infection. I do not suspect that there was a bacterial pneumonia. Seems more consistent with Covid/Viral pneumonia. At any rate, antibiotics have been completed. �Follow-up with your PCP within 7 to 10 days Pending Studies at Discharge: No Stand-Alone Forms: My [facility] Medications and DC Order Prescriptions: Continued acetaminophen 500 mg Tablet 500 mg PO Q6H PRN (Reason: Pain) RF: 0 ibuprofen 200 mg Tablet 200 mg PO Q6H PRN (Reason: Pain) RF: 0 benzonatate 200 mg capsule 200 mg PO TID PRN (Reason: cough) Qty: 30 RF: 1 dexamethasone [Decadron] 6 mg tablet 6 mg PO DAILY Qty: 4 RF: 0 albuterol sulfate 90 mcg/actuation HFA aerosol inhaler 3 inh inhalation Q6H Qty: 18 RF: 2 Discharge Orders: Discharge Order (Routine); Ordered 10/22/21 Ordered By: Kavya Thomas/Other Patient Handouts: 2019-nCoV, COVID-19 Home Care Admission Data Admit Date/Time: 10/17/21 00:09 Attending Provider: Flynn Dean Admit Provider: Porfirio Pate Primary Care Provider: Juan Avila Other Providers: Porfirio Pate Other Interventions: Discharge Summary Assessment (RN) Last Done: 10/22/21 15:22 Supervising Physician Co-Signing Physician Notes Attending Attestation & Discharge Note - Pt seen/examined, chart reviewed, discharge care plan d/w ELBERT Robertson. I agree w/ the hicks components of her discharge summary. 26yo male with acute hypoxic respiratory failure 2nd to COVID-19 pneumonia. Treated with IV dexamethasone, antibiotics, O2, and supportive care. Pulmonary symptoms improved while hospitalized, and o2 was weaned off. Passed 2-step ambulatory O2 test. CTA chest without PE. No family h/o VTE. Will complete several more days of dexamethasone after discharge. Discharge exam - gen - NAD heart - RRR, s1 s2, no murmur lungs - minimal b/l basilar rales, good airation, no wheeze abd - soft NT ND BS+ ext - no edema, pulses 2+ b/l Flynn Dean MD Coding Level of Care Code D/C DAY MANAGEMENT >30 MINS Diagnoses Acute hypoxemic respiratory failure due to COVID-19 U07.1; J96.01 Pneumonia due to 2019 novel coronavirus U07.1; J12.82 Secondary bacterial pneumonia J15.9 Cough R05.9
== END 2021-10-22 16:15 | disposition home or self-care (01) | DRG 177 ==
LOC: ED 18:38 → EDINP 10-17 00:09 → SUATTDRO 10-17 00:09 → EDINP 10-17 02:52 → 2W 10-18 18:12
DX: Z78.9 Other specified health status; Z99.81 Dependence on supplemental oxygen; J12.82 Pneumonia due to coronavirus disease 2019; E87.1 Hypo-osmolality and hyponatremia; U07.1 COVID-19; J96.01 Acute respiratory failure with hypoxia; J15.9 Unspecified bacterial pneumonia